=== PATIENT | female | born 1975 | race Caucasian/White ===

== ENCOUNTER 2018-11-28 16:38 | Emergency (ER) | payer BC, OTHER ==
[~2018-11-28] VITALS: Wt 90.0 kg
[2018-11-28] MEDS ORDERED: ONDANSETRON 4 MG INJ IV STA (17:06)
[2018-11-28] MEDS ORDERED: morphine 2 MG INJ IV STA (17:06)
[2018-11-28] MEDS ORDERED: KETOROLAC 30 MG INJ IV STA (17:06)
[2018-11-28] MEDS ORDERED: SOD CHLORIDE 0.9% 1,000 ML IV STA (17:06)
--- NOTE | 2018-11-28 17:13 | ERD ---
ER Documentation Chief Complaint Chief Complaint BACK PAIN, YESTERDAY DX UTI HPI 43-year-old female presents with complaint of left flank pain, pelvic pain, and "passing tissue in her urine". States she went to a urgent care yesterday and was diagnosed with UTI but has not received the urinalysis results yet. Since then she states that her flank pain is gotten worse. She has a history of kidney stones. Denies any fevers, vomiting, diarrhea but states that she has been nauseous. LMP was last Thursday. Denies chest pain, diaphoresis. ROS All systems reviewed and are negative except as per history of present illness. Medications Home Meds Active Scripts Hydrocodone/Acetaminophen ([place] 5-325 Tablet) 1 Each Tablet, 1 TAB PO Q6H PRN for PAIN, #15 TAB Prov:KERI FONTANEZ 11/28/18 Tamsulosin Hcl* (Flomax*) 0.4 Mg Cap.er.24h, 0.4 MG PO QPM for nephrolithiasis, #4 CAP Prov:KERI FONTANEZ 11/28/18 Allergies Allergies: Coded Allergies: No Known Allergy (Unverified , 11/28/18) PMhx/Soc Hx Alcohol Use: No Hx Substance Use: No Hx Tobacco Use: No Smoking Status: Never smoker FmHx Family History: No diabetes, No coronary disease, No other Physical Exam Vitals Vital Signs Date Temp Pulse Resp B/P (MAP) Pulse Ox O2 O2 Flow FiO2 Time Delivery Rate 11/28/18 97.6 71 18 143/75 99 Room Air 21:03 (97) 11/28/18 97.6 73 18 152/90 99 16:43 (110) Physical Exam Const: No acute distress Head: Atraumatic Eyes: Normal Conjunctiva ENT: Normal External Ears, Nose and Mouth. Neck: Full range of motion. No meningismus. Resp: Clear to auscultation bilaterally Cardio: Regular rate and rhythm, no murmurs Abd: Suprapubic tenderness to palpation. Skin: No petechiae or rashes Back: No midline or flank tenderness Ext: No cyanosis, or edema Neur: Awake and alert Psych: Normal Mood and Affect Result Diagram: 11/28/18 1717 11/28/18 1717 Results 24 hrs Laboratory Tests Test 11/28/18 17:19 11/28/18 17:20 White Blood Count 8.4 10^3/ul Red Blood Count 4.41 10^6/ul Hemoglobin 12.9 g/dl Hematocrit 39.3 % Mean Corpuscular Volume 89.1 fl Mean Corpuscular Hemoglobin 29.3 pg Mean Corpuscular Hemoglobin Concent 32.8 g/dl Red Cell Distribution Width 13.3 % Platelet Count 399 10^3/UL Mean Platelet Volume 10.5 fl Immature Granulocytes % 0.400 % Neutrophils % 67.6 % Lymphocytes % 20.2 % Monocytes % 5.8 % Eosinophils % 5.2 % Basophils % 0.8 % Nucleated Red Blood Cells % 0.0 /100WBC Immature Granulocytes # 0.030 10^3/ul Neutrophils # 5.7 10^3/ul Lymphocytes # 1.7 10^3/ul Monocytes # 0.5 10^3/ul Eosinophils # 0.4 10^3/ul Basophils # 0.1 10^3/ul Nucleated Red Blood Cells # 0.0 10^3/ul Urine Color YELLOW Urine Clarity SLIGHTLY CLOUDY Urine pH 6.0 Urine Specific [place] 1.023 Urine Ketones NEGATIVE mg/dL Urine Nitrite NEGATIVE mg/dL Urine Bilirubin NEGATIVE mg/dL Urine Urobilinogen NEGATIVE mg/dL Urine Leukocyte Esterase 2+ Danni/ul Urine Microscopic RBC 16 /HPF Urine Microscopic WBC 11 /HPF Urine Squamous Epithelial Cells FEW /HPF Urine Amorphous Crystals FEW /HPF Urine Bacteria FEW /HPF Urine Mucus FEW /HPF Urine Hemoglobin NEGATIVE mg/dL Urine Glucose NEGATIVE mg/dL Urine Total Protein NEGATIVE mg/dl Sodium Level 140 mmol/L Potassium Level 4.1 mmol/L Chloride Level 103 mmol/L Carbon Dioxide Level 30 mmol/L Anion Gap 7 Blood Urea Nitrogen 13 mg/dl Creatinine 0.74 mg/dl Est Glomerular Filtrat Rate mL/min > 60 mL/min Glucose Level 117 mg/dl Calcium Level 9.5 mg/dl Total Bilirubin 0.2 mg/dl Direct Bilirubin 0.00 mg/dl Indirect Bilirubin 0.2 mg/dl Aspartate Amino Transf (AST/SGOT) 30 IU/L Alanine Aminotransferase (ALT/SGPT) 22 IU/L Alkaline Phosphatase 77 IU/L Total Protein 6.8 g/dl Albumin 4.3 g/dl Globulin 2.50 g/dl Albumin/Globulin Ratio 1.72 POC Beta HCG, Qualitative NEGATIVE Current Medications Medications Dose Sig/Suraj Start Time Status Last (Trade) Ordered Route PRN Stop Time Admin Dose Reason Admin Sodium 1,000 ml @ Q1H STAT 11/28/18 DC 11/28/18 Chloride 1,000 mls/hr IV 17:06 11/28/18 17:27 18:05 Morphine 2 mg ONCE STAT 11/28/18 DC Sulfate IV 17:06 11/28/18 (morphine) 17:12 Ondansetron 4 mg ONCE STAT 11/28/18 DC 11/28/18 HCl (Zofran IV 17:06 11/28/18 17:26 Inj) 17:12 Ketorolac 30 mg ONCE STAT 11/28/18 DC 11/28/18 Tromethamine IV 17:06 11/28/18 17:26 (Toradol) 17:12 Tamsulosin 0.4 mg ONCE ONCE 11/28/18 DC 11/28/18 HCl PO 20:30 11/28/18 20:39 (Flomax) 20:31 Procedures/MDM DIAGNOSTIC IMAGING REPORT Patient: ELISABETH MACIEL : 1975 Age: 43 Sex: F MR #: [id number] DOS: 11/28/18 1706 Ordering MD: KERI FONTANEZ Location: [facility] Room/Bed: PROCEDURE: CT Abdomen and Pelvis without contrast CLINICAL INDICATION: Left flank pain TECHNIQUE: Transaxial computed tomographic images of the abdomen and pelvis were obtained without intravenous contrast. Coronal and sagittal reformatted images were provided. DICOM images are available. Radiation dose: CTDIvol (mGy) = 21.33; total DLP (mGy.cm) = 1263.82. One or more of the following dose reduction techniques were used: - Automated exposure control. - Adjustment of the mA and/or kV according to patient size. - Use of iterative reconstruction technique. COMPARISON: None. FINDINGS: The visualized lung bases are clear. There is no pleural effusion. The liver, gallbladder, spleen, pancreas, adrenal glands, and right kidney have normal noncontrast appearance. There is no calcific renal calculus or right hydronephrosis. There is an obstructing left mid to distal ureteral calculus measuring 4 mm resulting in mild to moderate left hydronephrosis and hydroureter and left perinephric and periureteral stranding (series 3 image 126). There is no evidence of intestinal obstruction or bowel wall thickening. The appendix is normal. There is no free air or free intraperitoneal fluid. There is no retroperitoneal lymphadenopathy. The aorta is of normal diameter. Urinary bladder is normal. The uterus is within normal limits. The osseous structures of the abdomen and pelvis are intact. A small calcific focus in L4 vertebral body likely represents a bone island. IMPRESSION: 1. Obstructive mid to distal left ureteral calculus measuring 4 mm resulting in mild to moderate left hydronephrosis and hydroureter. 2. No renal calculi or evidence of right hydronephrosis. The findings were discussed with Dr. Dowd in the ER at 06:25 p.m. on 11/28/[address] Gifford. RPTAT: [facility] Nicole Gifford Physician Date Time Electronically viewed and signed by Nicole Gifford Physician on 11/28/2018 18:29 RF/ CC: KERI FONTANEZ [id number] DIAGNOSTIC IMAGING REPORT Patient: ELISABETH MACIEL : 1975 Age: 43 Sex: F MR #: [id number] DOS: 11/28/18 1706 Ordering MD: KERI FONTANEZ Location: [facility] Room/Bed: PROCEDURE: US Pelvis CLINICAL INDICATION: Pelvic pain. TECHNIQUE: Transabdominal and transvaginal sonographic evaluation of the pelvis was performed. COMPARISON: None. FINDINGS: Uterus is anteverted and measures 8.3 x 4.4 x 5.2 cm. Endometrium measures 6 mm in thickness, within normal limits. There are a few heterogeneous echogenicity solid lesions in the uterus measuring up to 1.9 cm representing uterine fibroids. A subcentimeter cyst in the cervix represents a Nabothian cyst. Right ovary measures 3.5 x 1.8 x 2.4 cm. Left ovary measures 4.5 x 3.3 x 3.3 cm. Multiple small follicles are seen in both ovaries. No suspicious adnexal masses are seen. There is no free pelvic fluid. IMPRESSION: 1. A few heterogeneous echogenicity lesions in the uterus measuring up to 1.9 cm representing uterine fibroids. 2. Normal sonographic examination of the ovaries. RPTAT: HR[facility] Physician [place] Date Time Electronically viewed and signed by Nicole Gifford Physician on 11/28/2018 18:32 RF/ CC: KERI FONTANEZ [id number] MDM: CT showed calculus in the ureter consistent with kidney stone. There is only mild hydronephrosis. I discussed the case with supervising physician we decided that since the stone was 4 millimeters would most likely pass on its own. In addition patient had no signs of intractable pain or infection. Patient's pain is not intractable and there is no sign of infection. Patient given Rx for Flomax as well as pain medication. I will suspicion for kidney failure, urinary retention, infection, intractable pain, or any other emergent condition. Patient discharged with strict ER precautions. Patient advised to fo llow up with PMD as well as urology. All questions answered at discharge. Departure Diagnosis: Primary Impression: Ureter, calculus Condition: Stable KERI FONTANEZ November 28, 2018 17:13
[2018-11-28] MEDS ORDERED: HYDR-4011 PO (20:25)
[2018-11-28] MEDS ORDERED: TAMS-14 PO (20:25)
[2018-11-28] MEDS ORDERED: TAMSULOSIN (SR) 0.4 MG CAP PO ONE (20:30)
[2018-11-28 21:03] VITALS: BP 143/75; PULSE 71; RESP 18
== END 2018-11-28 21:05 | disposition home or self-care (01) ==
LOC: FTE 16:38
DX: N20.1 Calculus of ureter (principal); R10.2 Pelvic and perineal pain
CPT/HCPCS: 36415; 74176; 76830; 76856; 80053; 81001; 81025; 85025; 96361; 96374; 96375; 99285; J1885; J2405; J7030